=== PATIENT | male | born 1945 | race Caucasian/White ===

== ENCOUNTER 2017-04-12 05:13 | Inpatient (IN) | payer OTHER, MEDICARE ==
[~2017-04-12] VITALS: Ht 172.7 cm; Wt 77.1 kg
[2017-04-12 05:13] VITALS: BP_SYST 118
[~2017-04-12 05:13] MED LIST: ALFU10TA19 PO; AMOX500C2 PO
[2017-04-12] MEDS ORDERED: BACITRACIN 1 GM OINT TP ONE (06:30)
[2017-04-12] MEDS ORDERED: AMPICILLIN SODIUM/SULBACTAM NA 3 GM in NS 100 ML IV ONE (06:30)
[2017-04-12] MEDS ORDERED: AMPICILLIN SODIUM/SULBACTAM NA 3 GM VIAL ONE (06:55)
[2017-04-12 06:56] LABS: BASOPHILS # (AUTO) 0.1 K/uL (0.0-0.2); BASOPHILS % (AUTO) 0.8 % (0.0-2.0); EOSINOPHILS # (AUTO) 0.1 K/uL (0.0-0.4); EOSINOPHILS % (AUTO) 1.1 % (0.0-4.0); HEMATOCRIT 42.8 % (36-54); HEMOGLOBIN 14.2 g/dL (14.0-18.0); LYMPHOCYTES % (AUTO) 12.4 % (20.5-51.5); MEAN CORPUSCULAR HEMOGLOBIN 31 pg (27-31); MEAN CORPUSCULAR HGB CONC 33 % (32-36); MEAN CORPUSCULAR VOLUME 95 fL (79.0-98.0); MONOCYTES # (AUTO) 0.6 K/uL (0.0-1.0); MONOCYTES % (AUTO) 7.8 % (1.7-9.3); NEUTROPHILS % (AUTO) 77.9 % (40.0-70.0); PLATELET COUNT (AUTO) 207 K/uL (130-430); RED BLOOD CELL COUNT(AUTO) 4.53 MIL/uL (4.2-6.2); RED CELL DISTRIBUTION WIDTH 12.1 % (9.0-15.0); WHITE BLOOD COUNT (AUTO) 7.8 K/uL (4.8-10.8)
[2017-04-12 07:18] LABS: ANION GAP 7 (5-15); CALCIUM 8.8 mg/dL (8.4-11.0); CHLORIDE 107 mmol/L (98-107); CREATININE 1.34 mg/dL (0.55-1.30); GLUCOSE 107 mg/dL (70-99); POTASSIUM 4.4 mmol/L (3.5-5.1); SODIUM SERUM 141 mmol/L (136-145); UREA NITROGEN, BLOOD 19 mg/dL (8-21)
[2017-04-12 07:23] LABS: ALANINE AMINOTRANSFERASE 31 U/L (12-78); ALBUMIN 3.8 g/dL (3.4-4.8); ASPARTATE AMINOTRANSFERASE 23 U/L (10-37); TOTAL BILIRUBIN 1.8 mg/dL (0.0-1.0); TOTAL PROTEIN, SERUM 7.1 g/dL (6.4-8.3)
[2017-04-12] MEDS ORDERED: ALFU10TA19 PO (08:42)
[2017-04-12 08:58] VITALS: BP_SYST 133
[2017-04-12] MEDS: VANCOMYCIN HCL 1,250 MG in NS 250 ML IV SCH (10:59)
[2017-04-12] MEDS ORDERED: ONDANSETRON HCL 4 MG/2 ML VIAL IVP PRN (12:30)
[2017-04-12] MEDS ORDERED: HYDROcodone/ACETAMIN 5-325 MG TAB (NORCO/ VICODIN) PO PRN (12:30)
[2017-04-12] MEDS: PIPERACILLIN/TAZO 3.375/DEX-IS 50 ML IV SCH ×3 (13:51→23:15)
[2017-04-12] MEDS: NACL 0.9% 1,000 ML IV SCH (13:52)
[2017-04-12 16:12] VITALS: BP_SYST 125
[2017-04-12 20:00] VITALS: BP_SYST 99
[2017-04-12] MEDS: LACTOBACILLUS RHAMNOSUS GG 1 CAP CAPSULE PO SCH (20:19)
[2017-04-13 00:16] VITALS: BP_SYST 103
[2017-04-13] MEDS: NACL 0.9% 1,000 ML IV SCH ×2 (03:25→18:02)
[2017-04-13 04:57] VITALS: BP_SYST 109
[2017-04-13] MEDS: PIPERACILLIN/TAZO 3.375/DEX-IS 50 ML IV SCH ×2 (05:01→11:52)
[2017-04-13 06:23] LABS: ALANINE AMINOTRANSFERASE 29 U/L (12-78); ANION GAP 5 (5-15); ASPARTATE AMINOTRANSFERASE 23 U/L (10-37); C-REACTIVE PROTEIN QUANT 1.2 mg/dL (0-0.5); CALCIUM 8.2 mg/dL (8.4-11.0); CHLORIDE 108 mmol/L (98-107); CREATININE 1.42 mg/dL (0.55-1.30); GLUCOSE 105 mg/dL (70-99); POTASSIUM 4.2 mmol/L (3.5-5.1); SODIUM SERUM 139 mmol/L (136-145); TOTAL BILIRUBIN 1.5 mg/dL (0.0-1.0); UREA NITROGEN, BLOOD 15 mg/dL (8-21)
[2017-04-13 06:28] LABS: BASOPHILS % (AUTO) 0.9 % (0.0-2.0); EOSINOPHILS # (AUTO) 0.1 K/uL (0.0-0.4); EOSINOPHILS % (AUTO) 2.4 % (0.0-4.0); HEMATOCRIT 37.3 % (36-54); HEMOGLOBIN 12.6 g/dL (14.0-18.0); LYMPHOCYTES # (AUTO) 1.4 K/uL (1.0-5.5); LYMPHOCYTES % (AUTO) 26.3 % (20.5-51.5); MEAN CORPUSCULAR HEMOGLOBIN 32 pg (27-31); MEAN CORPUSCULAR HGB CONC 34 % (32-36); MEAN CORPUSCULAR VOLUME 94 fL (79.0-98.0); MONOCYTES # (AUTO) 0.8 K/uL (0.0-1.0); MONOCYTES % (AUTO) 15.9 % (1.7-9.3); NEUTROPHILS # (AUTO) 2.9 K/uL (1.8-7.7); NEUTROPHILS % (AUTO) 54.5 % (40.0-70.0); PLATELET COUNT (AUTO) 179 K/uL (130-430); RED BLOOD CELL COUNT(AUTO) 3.96 MIL/uL (4.2-6.2); RED CELL DISTRIBUTION WIDTH 12.4 % (9.0-15.0); WHITE BLOOD COUNT (AUTO) 5.2 K/uL (4.8-10.8)
[2017-04-13 07:46] LABS: ERYTHROCYTE SEDIMENTATION RATE 13 MM/HR (0-15)
[2017-04-13 08:00] VITALS: BP_SYST 116
[2017-04-13] MEDS: LACTOBACILLUS RHAMNOSUS GG 1 CAP CAPSULE PO SCH ×2 (08:19→20:39)
[2017-04-13] MEDS: VANCOMYCIN HCL 1,250 MG in NS 250 ML IV SCH (10:35)
[2017-04-13 12:06] VITALS: BP_SYST 148
[2017-04-13] MEDS ORDERED: COMMUNICATION ORDER XX ONE (13:45)
[2017-04-13 16:43] VITALS: BP_SYST 125
[2017-04-13] MEDS: CLINDAMYCIN 600 MG in D5W 50 ML IV SCH ×2 (18:02→23:21)
[2017-04-13 20:00] VITALS: BP_SYST 120
[2017-04-13] MEDS: MUPIROCIN 2% TOPICAL OINTMENT 22 GM TP SCH (20:39)
[2017-04-14 00:06] VITALS: BP_SYST 104
[2017-04-14] MEDS: NACL 0.9% 1,000 ML IV SCH ×2 (03:25→15:49)
[2017-04-14 04:17] VITALS: BP_SYST 122
[2017-04-14] MEDS: CLINDAMYCIN 600 MG in D5W 50 ML IV SCH (05:10)
[2017-04-14 08:00] VITALS: BP_SYST 126
[2017-04-14] MEDS: [UNRECOGNIZED DRUG - OTHER] PO SCH (09:00)
[2017-04-14] MEDS: ALFUZOSIN ER 10 MG PO SCH (09:00)
[2017-04-14] MEDS: LACTOBACILLUS RHAMNOSUS GG 1 CAP CAPSULE PO SCH ×2 (09:08→20:55)
[2017-04-14] MEDS: MUPIROCIN 2% TOPICAL OINTMENT 22 GM TP SCH ×2 (09:09→20:55)
[2017-04-14] MEDS ORDERED: LOPERAMIDE HCL 2 MG CAPSULE PO ONE (11:15)
[2017-04-14] MEDS: VANCOMYCIN HCL 1,250 MG in NS 250 ML IV SCH (11:28)
[2017-04-14 11:42] VITALS: BP_SYST 126
[2017-04-14] MEDS: metroNIDAZOLE 500 MG TABLET PO SCH ×3 (15:53→20:59)
[2017-04-14 17:27] VITALS: BP_SYST 123
[2017-04-14 20:00] VITALS: BP_SYST 109
[2017-04-14] MEDS: ACETAMINOPHEN 325 MG TABLET PO PRN ×2 (20:55→20:58)
[2017-04-15 00:33] VITALS: BP_SYST 116
[2017-04-15] MEDS: NACL 0.9% 1,000 ML IV SCH ×3 (00:45→10:45)
[2017-04-15 04:36] VITALS: BP_SYST 107
[2017-04-15] MEDS: metroNIDAZOLE 500 MG TABLET PO SCH ×2 (05:06→13:30)
[2017-04-15 08:10] VITALS: BP_SYST 123
[2017-04-15] MEDS: LACTOBACILLUS RHAMNOSUS GG 1 CAP CAPSULE PO SCH (09:13)
[2017-04-15] MEDS: MUPIROCIN 2% TOPICAL OINTMENT 22 GM TP SCH (09:14)
[2017-04-15] MEDS: [UNRECOGNIZED DRUG - OTHER] PO SCH (09:14)
[2017-04-15] MEDS: ALFUZOSIN ER 10 MG PO SCH (09:14)
[2017-04-15] MEDS: VANCOMYCIN HCL 1,250 MG in NS 250 ML IV SCH (10:08)
[2017-04-15 11:53] VITALS: BP_SYST 112
[2017-04-15 16:29] VITALS: BP_SYST 112
[2017-04-15] MEDS ORDERED: CIPR-211 PO (16:34)
[2017-04-15] MEDS ORDERED: DOXY-4 PO (16:34)
[2017-04-15] MEDS ORDERED: SACC250C3 PO (16:35)
[2017-04-15] MEDS ORDERED: METR500T PO (16:35)
[2017-04-15 17:12] VITALS: BP_SYST 110
== END 2017-04-15 16:55 | disposition home or self-care (01) | DRG 934 ==
LOC: SED 05:13 → SMU 08:16
PROVIDERS: ADMIT Family Medicine; ATTEND Family Medicine
DX: T24.311A Burn of third degree of right thigh, initial encounter (principal); L03.113 Cellulitis of right upper limb; S61.431A Puncture wound without foreign body of right hand, initial encounter; N40.0 Benign prostatic hyperplasia without lower urinary tract symptoms; H93.19 Tinnitus, unspecified ear; B96.89 Other specified bacterial agents as the cause of diseases classified elsewhere; M19.90 Unspecified osteoarthritis, unspecified site; Y83.8 Other surgical procedures as the cause of abnormal reaction of the patient, or of later complication, without mention of misadventure at the time of the procedure; R19.7 Diarrhea, unspecified; X58.XXXA Exposure to other specified factors, initial encounter; Y93.89 Activity, other specified; Z88.6 Allergy status to analgesic agent; Y92.89 Other specified places as the place of occurrence of the external cause; Y99.8 Other external cause status; Z87.440 Personal history of urinary (tract) infections
CPT/HCPCS: 36415; 73221; 80053; 83605; 85025; 85651-TC; 86140; 87040-TC; 99285; J0295; J2543; J3370; J3490; J7030; J7040; J7050; J7060

== ENCOUNTER 2018-08-22 03:44 | Inpatient (IN) | payer OTHER, MEDICARE ==
[~2018-08-22] VITALS: Ht 172.7 cm; Wt 76.7 kg
[~2018-08-22 03:44] MED LIST changes: -AMOX500C2 PO; +CIPR-211 PO; +DOXY100C PO; +METR500T PO; +SACC250C3 PO
[2018-08-22 03:45] VITALS: BP_SYST 140
[2018-08-22] MEDS ORDERED: NACL 0.9% 1,000 ML IV ONE ×2 (04:15→06:30)
[2018-08-22 05:06] LABS: BASOPHILS % (AUTO) 0.3 % (0.0-2.0); EOSINOPHILS % (AUTO) 0.1 % (0.0-4.0); HEMATOCRIT 41.5 % (36-54); HEMOGLOBIN 13.2 g/dL (14.0-18.0); LYMPHOCYTES # (AUTO) 0.7 K/uL (1.0-5.5); LYMPHOCYTES % (AUTO) 5.2 % (20.5-51.5); MEAN CORPUSCULAR HEMOGLOBIN 31 pg (27-31); MEAN CORPUSCULAR HGB CONC 32 % (32-36); MEAN CORPUSCULAR VOLUME 96 fL (79.0-98.0); MONOCYTES % (AUTO) 7.4 % (1.7-9.3); PLATELET COUNT (AUTO) 205 K/uL (130-430); RED BLOOD CELL COUNT(AUTO) 4.32 MIL/uL (4.2-6.2); RED CELL DISTRIBUTION WIDTH 12.1 % (9.0-15.0); WHITE BLOOD COUNT (AUTO) 13.7 K/uL (4.8-10.8)
[2018-08-22 05:11] LABS: ANION GAP 9 (5-15); CALCIUM 8.6 mg/dL (8.4-11.0); CHLORIDE 105 mmol/L (98-107); CREATININE 1.41 mg/dL (0.55-1.30); GLUCOSE 135 mg/dL (70-99); POTASSIUM 3.8 mmol/L (3.5-5.1); SODIUM SERUM 137 mmol/L (136-145); UREA NITROGEN, BLOOD 16 mg/dL (8-21)
[2018-08-22 05:17] LABS: ALANINE AMINOTRANSFERASE 22 U/L (12-78); ALBUMIN 3.2 g/dL (3.4-4.8); ASPARTATE AMINOTRANSFERASE 16 U/L (10-37); TOTAL BILIRUBIN 2.2 mg/dL (0.0-1.0)
[2018-08-22] MEDS ORDERED: cefTRIAXone 1 GM IVPB PREMIX 50 ML IV ONE (05:45)
[2018-08-22] MEDS ORDERED: ACETAMINOPHEN 500 MG TABLET PO ONE (05:45)
[2018-08-22] MEDS ORDERED: TAMSULOSIN HCL 0.4 MG CAP PO ONE (05:45)
[2018-08-22] MEDS ORDERED: TAMSULOSIN HCL 0.4 MG CAP ONE (05:51)
[2018-08-22] MEDS ORDERED: NS 500 ML IV ONE (06:30)
[2018-08-22] MEDS ORDERED: LEVOFLOXACIN 500 MG/D5W 100 ML IV ONE (06:30)
[2018-08-22 06:33] LABS: BILIRUBIN,URINE NEGATIVE (NEGATIVE); BLOOD, URINE 3+ (NEGATIVE); COLOR,URINE YELLOW (YELLOW); GLUCOSE,URINE NEGATIVE (NEGATIVE); KETONES,URINE NEGATIVE (NEGATIVE); LEUKOCYTE ESTERASE ,URINE 1+ (NEGATIVE); NITRITE, URINE POSITIVE (NEGATIVE); PROTEIN URINE 1+ (NEGATIVE); UROBILINOGEN,URINE 0.2 (0.2-1.0)
[2018-08-22 06:34] LABS: CLARITY/URINE HAZY (CLEAR)
[2018-08-22 06:36] LABS: BACTERIA,URINE MANY /HPF (None Seen); WBC,URINE 50-80 /HPF (0-3)
[2018-08-22 07:10] VITALS: BP_SYST 96
[2018-08-22] MEDS ORDERED: KCL 20 mEq in 0.45% NS 1000 mL 1,000 ML IV SCH (08:30)
[2018-08-22] MEDS: TAMSULOSIN HCL 0.4 MG CAP PO SCH (08:53)
[2018-08-22] MEDS ORDERED: MEROPENEM 1 GM in NS 100 ML IV SCH (09:00)
[2018-08-22] MEDS ORDERED: CEFEPIME 1 GM in D5W 50 ML IV SCH (09:00)
[2018-08-22] MEDS: MEROPENEM 1 GM in NS 100 ML IV SCH ×2 (09:33→18:18)
[2018-08-22 11:39] VITALS: BP_SYST 104
[2018-08-22] MEDS: ACETAMINOPHEN 325 MG TABLET PO PRN ×2 (12:22→21:23)
[2018-08-22] MEDS: KCL 20 mEq in D5NS 1000 mL 1,000 ML IV SCH ×2 (15:21→22:37)
[2018-08-22 15:34] VITALS: BP_SYST 99
[2018-08-22 19:40] VITALS: BP_SYST 136
[2018-08-22] MEDS: ENOXAPARIN SODIUM 30 MG/0.3 ML SYRINGE SUBCUT SCH (21:17)
[2018-08-22 23:00] VITALS: BP_SYST 111
[2018-08-23] MEDS: MEROPENEM 1 GM in NS 100 ML IV SCH ×2 (02:21→09:01)
[2018-08-23] MEDS: ACETAMINOPHEN 325 MG TABLET PO PRN ×3 (02:24→15:36)
[2018-08-23] MEDS: KCL 20 mEq in D5NS 1000 mL 1,000 ML IV SCH ×4 (05:49→22:02)
[2018-08-23 06:52] LABS: ANION GAP 7 (5-15); CALCIUM 7.8 mg/dL (8.4-11.0); CHLORIDE 106 mmol/L (98-107); CREATININE 1.36 mg/dL (0.55-1.30); GLUCOSE 147 mg/dL (70-99); SODIUM SERUM 136 mmol/L (136-145); UREA NITROGEN, BLOOD 9 mg/dL (8-21)
[2018-08-23 06:59] LABS: BASOPHILS % (AUTO) 0.2 % (0.0-2.0); EOSINOPHILS % (AUTO) 0.3 % (0.0-4.0); HEMATOCRIT 35.8 % (36-54); HEMOGLOBIN 12.3 g/dL (14.0-18.0); LYMPHOCYTES # (AUTO) 0.7 K/uL (1.0-5.5); LYMPHOCYTES % (AUTO) 8.7 % (20.5-51.5); MEAN CORPUSCULAR HEMOGLOBIN 33 pg (27-31); MEAN CORPUSCULAR HGB CONC 35 % (32-36); MEAN CORPUSCULAR VOLUME 95 fL (79.0-98.0); MONOCYTES # (AUTO) 0.5 K/uL (0.0-1.0); MONOCYTES % (AUTO) 6.3 % (1.7-9.3); NEUTROPHILS # (AUTO) 7.2 K/uL (1.8-7.7); NEUTROPHILS % (AUTO) 84.5 % (40.0-70.0); PLATELET COUNT (AUTO) 168 K/uL (130-430); RED BLOOD CELL COUNT(AUTO) 3.77 MIL/uL (4.2-6.2); RED CELL DISTRIBUTION WIDTH 12.1 % (9.0-15.0); WHITE BLOOD COUNT (AUTO) 8.4 K/uL (4.8-10.8)
[2018-08-23 07:50] VITALS: BP_SYST 115
[2018-08-23] MEDS: TAMSULOSIN HCL 0.4 MG CAP PO SCH ×3 (08:53→09:03)
[2018-08-23] MEDS: KETOROLAC TROMETHAMINE 15 MG VIAL IVP PRN (09:00)
[2018-08-23] MEDS ORDERED: GENTAMICIN 100 mg/50 mL NS 50 ML IV ONE (11:00)
[2018-08-23] MEDS: cefTRIAXone 1 GM in D5W 50 ML IV SCH (11:40)
[2018-08-23 12:30] VITALS: BP_SYST 103
[2018-08-23] MEDS ORDERED: *CUBICIN 4 MG/KG Q24H/PHARMACY XX ONE (13:45)
[2018-08-23 16:15] VITALS: BP_SYST 111
[2018-08-23] MEDS: NS IV SCH (16:52)
[2018-08-23] MEDS: DAPTOMYCIN IV SCH (16:52)
[2018-08-23 20:00] VITALS: BP_SYST 112
[2018-08-23] MEDS: ENOXAPARIN SODIUM 30 MG/0.3 ML SYRINGE SUBCUT SCH (20:42)
[2018-08-24 00:18] VITALS: BP_SYST 137
[2018-08-24] MEDS: KETOROLAC TROMETHAMINE 15 MG VIAL IVP PRN ×3 (02:41→21:29)
[2018-08-24] MEDS: KCL 20 mEq in D5NS 1000 mL 1,000 ML IV SCH ×3 (04:56→20:20)
[2018-08-24 07:37] LABS: % FREE PSA 30.7 % (.); FREE PSA 4.36 ng/mL
[2018-08-24 08:00] VITALS: BP_SYST 140
[2018-08-24] MEDS: TAMSULOSIN HCL 0.4 MG CAP PO SCH (09:00)
[2018-08-24 11:08] VITALS: BP_SYST 132
[2018-08-24] MEDS: cefTRIAXone 1 GM in D5W 50 ML IV SCH (11:10)
[2018-08-24] MEDS: NS IV SCH (15:23)
[2018-08-24] MEDS: DAPTOMYCIN IV SCH (15:23)
[2018-08-24 16:00] VITALS: BP_SYST 119
[2018-08-24 20:00] VITALS: BP_SYST 134
[2018-08-24] MEDS: ENOXAPARIN SODIUM 30 MG/0.3 ML SYRINGE SUBCUT SCH (21:25)
[2018-08-24] MEDS: ALFUZOSIN HCL 10 MG PO SCH (21:27)
[2018-08-25] VITALS: BP_SYST 144
[2018-08-25] MEDS: ACETAMINOPHEN 325 MG TABLET PO PRN ×2 (02:59→20:40)
[2018-08-25] MEDS: KCL 20 mEq in D5NS 1000 mL 1,000 ML IV SCH ×4 (04:51→22:38)
[2018-08-25 05:36] VITALS: BP_SYST 111
[2018-08-25 07:41] LABS: BASOPHILS % (AUTO) 0.2 % (0.0-2.0); EOSINOPHILS # (AUTO) 0.2 K/uL (0.0-0.4); EOSINOPHILS % (AUTO) 1.5 % (0.0-4.0); HEMATOCRIT 34.4 % (36-54); HEMOGLOBIN 11.6 g/dL (14.0-18.0); LYMPHOCYTES # (AUTO) 1.1 K/uL (1.0-5.5); LYMPHOCYTES % (AUTO) 10.8 % (20.5-51.5); MEAN CORPUSCULAR HEMOGLOBIN 32 pg (27-31); MEAN CORPUSCULAR HGB CONC 34 % (32-36); MEAN CORPUSCULAR VOLUME 96 fL (79.0-98.0); MONOCYTES # (AUTO) 1.3 K/uL (0.0-1.0); MONOCYTES % (AUTO) 12.4 % (1.7-9.3); NEUTROPHILS # (AUTO) 7.8 K/uL (1.8-7.7); NEUTROPHILS % (AUTO) 75.1 % (40.0-70.0); PLATELET COUNT (AUTO) 189 K/uL (130-430); RED BLOOD CELL COUNT(AUTO) 3.59 MIL/uL (4.2-6.2); RED CELL DISTRIBUTION WIDTH 12.1 % (9.0-15.0); WHITE BLOOD COUNT (AUTO) 10.4 K/uL (4.8-10.8)
[2018-08-25 07:42] LABS: ANION GAP 6 (5-15); CALCIUM 8.2 mg/dL (8.4-11.0); CHLORIDE 107 mmol/L (98-107); CREATININE 1.23 mg/dL (0.55-1.30); GLUCOSE 104 mg/dL (70-99); POTASSIUM 4.5 mmol/L (3.5-5.1); SODIUM SERUM 137 mmol/L (136-145); UREA NITROGEN, BLOOD 10 mg/dL (8-21)
[2018-08-25 08:08] VITALS: BP_SYST 139
[2018-08-25] MEDS: cefTRIAXone 1 GM in D5W 50 ML IV SCH (11:39)
[2018-08-25 12:55] VITALS: BP_SYST 119
[2018-08-25 14:14] LABS: PROSTATE SPECIFIC AG TOTAL 14.2 ng/mL (0.0-4.0)
[2018-08-25 16:23] VITALS: BP_SYST 140
[2018-08-25] MEDS: DAPTOMYCIN IV SCH (16:53)
[2018-08-25] MEDS: NS IV SCH (16:53)
[2018-08-25 20:00] VITALS: BP_SYST 145
[2018-08-25] MEDS: ALFUZOSIN HCL 10 MG PO SCH (20:39)
[2018-08-25] MEDS: ENOXAPARIN SODIUM 30 MG/0.3 ML SYRINGE SUBCUT SCH (22:42)
[2018-08-26 04:30] VITALS: BP_SYST 138
[2018-08-26] MEDS: KCL 20 mEq in D5NS 1000 mL 1,000 ML IV SCH ×3 (07:24→20:59)
[2018-08-26 08:04] VITALS: BP_SYST 129
[2018-08-26] MEDS: cefTRIAXone 1 GM in D5W 50 ML IV SCH (11:31)
[2018-08-26 12:14] VITALS: BP_SYST 131
[2018-08-26] MEDS: NS IV SCH (16:05)
[2018-08-26] MEDS: DAPTOMYCIN IV SCH (16:05)
[2018-08-26 16:58] VITALS: BP_SYST 126
[2018-08-26 20:00] VITALS: BP_SYST 147
[2018-08-26] MEDS: ENOXAPARIN SODIUM 30 MG/0.3 ML SYRINGE SUBCUT SCH (21:00)
[2018-08-26] MEDS: ALFUZOSIN HCL 10 MG PO SCH (21:01)
[2018-08-26] MEDS: CLOTRIMAZOLE/BETAMETHASONE 45 GM TOPICAL CREAM TP SCH (22:15)
[2018-08-26 23:29] VITALS: BP_SYST 130
[2018-08-27] MEDS: KCL 20 mEq in D5NS 1000 mL 1,000 ML IV SCH ×2 (03:46→11:22)
[2018-08-27 07:23] LABS: ANION GAP 9 (5-15); CALCIUM 8.5 mg/dL (8.4-11.0); CHLORIDE 103 mmol/L (98-107); CREATININE 1.13 mg/dL (0.55-1.30); GLUCOSE 107 mg/dL (70-99); POTASSIUM 4.3 mmol/L (3.5-5.1); SODIUM SERUM 137 mmol/L (136-145); UREA NITROGEN, BLOOD 10 mg/dL (8-21)
[2018-08-27 07:26] LABS: BASOPHILS % (AUTO) 0.4 % (0.0-2.0); EOSINOPHILS # (AUTO) 0.3 K/uL (0.0-0.4); EOSINOPHILS % (AUTO) 3.5 % (0.0-4.0); HEMATOCRIT 34.7 % (36-54); LYMPHOCYTES # (AUTO) 1.5 K/uL (1.0-5.5); LYMPHOCYTES % (AUTO) 18.1 % (20.5-51.5); MEAN CORPUSCULAR HEMOGLOBIN 33 pg (27-31); MEAN CORPUSCULAR HGB CONC 35 % (32-36); MEAN CORPUSCULAR VOLUME 95 fL (79.0-98.0); MONOCYTES % (AUTO) 11.9 % (1.7-9.3); NEUTROPHILS # (AUTO) 5.5 K/uL (1.8-7.7); NEUTROPHILS % (AUTO) 66.1 % (40.0-70.0); PLATELET COUNT (AUTO) 266 K/uL (130-430); RED BLOOD CELL COUNT(AUTO) 3.67 MIL/uL (4.2-6.2); RED CELL DISTRIBUTION WIDTH 12.3 % (9.0-15.0); WHITE BLOOD COUNT (AUTO) 8.3 K/uL (4.8-10.8)
[2018-08-27 08:00] VITALS: BP_SYST 133
[2018-08-27] MEDS: CLOTRIMAZOLE/BETAMETHASONE 45 GM TOPICAL CREAM TP SCH ×2 (08:59→20:26)
[2018-08-27] MEDS: cefTRIAXone 1 GM in D5W 50 ML IV SCH (11:21)
[2018-08-27 12:50] VITALS: BP_SYST 130
[2018-08-27] MEDS: NS IV SCH (15:21)
[2018-08-27] MEDS: DAPTOMYCIN IV SCH (15:21)
[2018-08-27 16:49] VITALS: BP_SYST 119
[2018-08-27 20:00] VITALS: BP_SYST 122
[2018-08-27] MEDS: ENOXAPARIN SODIUM 30 MG/0.3 ML SYRINGE SUBCUT SCH (20:25)
[2018-08-27] MEDS: ALFUZOSIN HCL 10 MG PO SCH (20:27)
[2018-08-28 00:14] VITALS: BP_SYST 119
[2018-08-28 08:33] VITALS: BP_SYST 122
[2018-08-28] MEDS: CLOTRIMAZOLE/BETAMETHASONE 45 GM TOPICAL CREAM TP SCH (09:51)
[2018-08-28] MEDS ORDERED: LEVO250T2 PO (11:41)
[2018-08-28] MEDS ORDERED: LEVOFLOXACIN 500 MG TABLET PO ONE (11:45)
[2018-08-28 12:20] VITALS: BP_SYST 135
[2018-08-28 12:54] VITALS: BP_SYST 120
== END 2018-08-28 13:51 | disposition home or self-care (01) | DRG 872 ==
LOC: SED 03:44 → SMU 06:06
PROVIDERS: ADMIT Family Medicine; ATTEND Family Medicine
DX: A41.9 Sepsis, unspecified organism (principal); N10 Acute pyelonephritis; N17.9 Acute kidney failure, unspecified; N20.0 Calculus of kidney; E86.0 Dehydration; N35.919 Unspecified urethral stricture, male, unspecified site; N40.1 Benign prostatic hyperplasia with lower urinary tract symptoms; R33.8 Other retention of urine; B96.20 Unspecified Escherichia coli [E. coli] as the cause of diseases classified elsewhere; R21 Rash and other nonspecific skin eruption; Z87.442 Personal history of urinary calculi; Z88.5 Allergy status to narcotic agent
CPT/HCPCS: 36415; 80048; 80053; 81000-TC; 83605; 85025; 87040-TC; 87086; 87186-TC; 90656; 96361; 96365; 96368; 99285; G0103; J0692; J0696; J0878; J1580; J1650; J1885; J1956; J2185; J3480; J7030; J7040; J7060

== ENCOUNTER 2018-09-05 10:38 | Outpatient (CLI) | payer OTHER, MEDICARE ==
[~2018-09-05 10:38] MED LIST changes: -CIPR-211 PO; -DOXY100C PO; +LEVO250T2 PO; -METR500T PO; -SACC250C3 PO
[2018-09-05 11:18] LABS: BASOPHILS # (AUTO) 0.1 K/uL (0.0-0.2); BASOPHILS % (AUTO) 1.3 % (0.0-2.0); EOSINOPHILS # (AUTO) 0.1 K/uL (0.0-0.4); EOSINOPHILS % (AUTO) 0.7 % (0.0-4.0); HEMATOCRIT 44.6 % (36-54); HEMOGLOBIN 14.5 g/dL (14.0-18.0); LYMPHOCYTES # (AUTO) 1.9 K/uL (1.0-5.5); LYMPHOCYTES % (AUTO) 21.2 % (20.5-51.5); MEAN CORPUSCULAR HEMOGLOBIN 32 pg (27-31); MEAN CORPUSCULAR HGB CONC 33 % (32-36); MEAN CORPUSCULAR VOLUME 96 fL (79.0-98.0); MONOCYTES # (AUTO) 0.7 K/uL (0.0-1.0); NEUTROPHILS # (AUTO) 6.2 K/uL (1.8-7.7); NEUTROPHILS % (AUTO) 68.8 % (40.0-70.0); PLATELET COUNT (AUTO) 536 K/uL (130-430); RED BLOOD CELL COUNT(AUTO) 4.62 MIL/uL (4.2-6.2); RED CELL DISTRIBUTION WIDTH 12.3 % (9.0-15.0)
[2018-09-05 11:20] LABS: ANION GAP 3 (5-15); CALCIUM 9.6 mg/dL (8.4-11.0); CHLORIDE 106 mmol/L (98-107); GLUCOSE 110 mg/dL (70-99); POTASSIUM 5.2 mmol/L (3.5-5.1); SODIUM SERUM 138 mmol/L (136-145)
[2018-09-05 11:21] LABS: CREATININE 1.51 mg/dL (0.55-1.30); UREA NITROGEN, BLOOD 22 mg/dL (8-21)
[2018-09-05 11:26] LABS: PROTHROMBIN TIME 10.2 SECS (9.5-12.5)
[2018-09-05 11:42] LABS: BILIRUBIN,URINE NEGATIVE (NEGATIVE); BLOOD, URINE 1+ (NEGATIVE); CLARITY/URINE CLEAR (CLEAR); COLOR,URINE YELLOW (YELLOW); GLUCOSE,URINE NEGATIVE (NEGATIVE); KETONES,URINE NEGATIVE (NEGATIVE); LEUKOCYTE ESTERASE ,URINE NEGATIVE (NEGATIVE); NITRITE, URINE NEGATIVE (NEGATIVE); PH,URINE 5.5 (5.0-8.0); PROTEIN URINE NEGATIVE (NEGATIVE); UROBILINOGEN,URINE 0.2 (0.2-1.0)
[2018-09-05 12:08] LABS: BACTERIA,URINE RARE /HPF (None Seen); MUCUS,URINE 1+ /LPF (None Seen); WBC,URINE 0-3 /HPF (0-3)
== END 2018-09-05 20:40 | disposition home or self-care (01) ==
LOC: SRD 10:38
PROVIDERS: ATTEND Family Medicine
DX: Z01.818 Encounter for other preprocedural examination (principal); R05 Cough; N20.0 Calculus of kidney; Z90.49 Acquired absence of other specified parts of digestive tract
CPT/HCPCS: 36415; 71046-TC; 80048; 81000-TC; 85025; 85610-TC; 85730-TC; 87086

== ENCOUNTER 2018-09-13 16:44 | Emergency (ER) | payer OTHER, MEDICARE ==
[~2018-09-13] VITALS: Ht 172.7 cm; Wt 72.1 kg
[2018-09-13 16:50] VITALS: BP_SYST 136
[2018-09-13] MEDS ORDERED: ONDANSETRON HCL 4 MG/2 ML VIAL IVP ONE (17:15)
[2018-09-13] MEDS ORDERED: fentaNYL CITRATE/PF 100 MCG/2 ML AMP IVP ONE (17:15)
[2018-09-13 17:44] LABS: ANION GAP 13 (5-15); CALCIUM 8.8 mg/dL (8.4-11.0); CHLORIDE 100 mmol/L (98-107); CREATININE 2.18 mg/dL (0.55-1.30); GLUCOSE 152 mg/dL (70-99); POTASSIUM 4.4 mmol/L (3.5-5.1); SODIUM SERUM 135 mmol/L (136-145); UREA NITROGEN, BLOOD 24 mg/dL (8-21)
[2018-09-13 17:49] LABS: ALANINE AMINOTRANSFERASE 28 U/L (12-78); ALBUMIN 3.3 g/dL (3.4-4.8); ASPARTATE AMINOTRANSFERASE 20 U/L (10-37); LIPASE 129 U/L (73-393); TOTAL BILIRUBIN 1.5 mg/dL (0.0-1.0)
[2018-09-13] MEDS ORDERED: HYDR-3606 PO (18:22)
[2018-09-13] MEDS ORDERED: SULF20OR7 PO (18:22)
[2018-09-13] MEDS ORDERED: BIOF1TAB8 PO (18:22)
[2018-09-13] MEDS ORDERED: MULT-1164 PO (18:22)
[2018-09-13 18:33] LABS: BILIRUBIN,URINE 1+ (NEGATIVE); BLOOD, URINE 3+ (NEGATIVE); CLARITY/URINE CLOUDY (CLEAR); COLOR,URINE RED (YELLOW); GLUCOSE,URINE NEGATIVE (NEGATIVE); KETONES,URINE NEGATIVE (NEGATIVE); LEUKOCYTE ESTERASE ,URINE 2+ (NEGATIVE); NITRITE, URINE POSITIVE (NEGATIVE); PROTEIN URINE 3+ (NEGATIVE)
[2018-09-13 18:39] LABS: BASOPHILS % (AUTO) 0.2 % (0.0-2.0); EOSINOPHILS % (AUTO) 0.1 % (0.0-4.0); HEMATOCRIT 40.9 % (36-54); HEMOGLOBIN 13.7 g/dL (14.0-18.0); LYMPHOCYTES # (AUTO) 0.9 K/uL (1.0-5.5); LYMPHOCYTES % (AUTO) 6.2 % (20.5-51.5); MEAN CORPUSCULAR HEMOGLOBIN 31 pg (27-31); MEAN CORPUSCULAR HGB CONC 34 % (32-36); MEAN CORPUSCULAR VOLUME 93 fL (79.0-98.0); MONOCYTES # (AUTO) 1.1 K/uL (0.0-1.0); MONOCYTES % (AUTO) 7.7 % (1.7-9.3); NEUTROPHILS % (AUTO) 85.8 % (40.0-70.0); PLATELET COUNT (AUTO) 308 K/uL (130-430); RED BLOOD CELL COUNT(AUTO) 4.38 MIL/uL (4.2-6.2); RED CELL DISTRIBUTION WIDTH 12.6 % (9.0-15.0)
[2018-09-13] MEDS ORDERED: cefTRIAXone 1 GM IVPB PREMIX 50 ML IV ONE (19:00)
[2018-09-13 19:32] LABS: BACTERIA,URINE FEW /HPF (None Seen); RBC,URINE >100 /HPF (0-3); WBC,URINE 20-50 /HPF (0-3)
[2018-09-13 19:33] LABS: MUCUS,URINE None Seen /LPF (None Seen); YEAST,URINE None Seen /HPF (None Seen)
[2018-09-13 20:10] VITALS: BP_SYST 116
== END 2018-09-13 20:10 | disposition home or self-care (01) ==
LOC: SED 16:44
DX: N39.0 Urinary tract infection, site not specified (principal); R33.9 Retention of urine, unspecified; R31.9 Hematuria, unspecified; N18.9 Chronic kidney disease, unspecified; D72.829 Elevated white blood cell count, unspecified; N40.0 Benign prostatic hyperplasia without lower urinary tract symptoms; Z88.6 Allergy status to analgesic agent; Z79.899 Other long term (current) drug therapy
CPT/HCPCS: 36415; 51702; 76770; 80053; 81000; 83690; 85025; 86886; 86900; 86901; 87040; 87086; 96365; 96375; 99285; J0696; J2405; J3010

== ENCOUNTER 2018-11-21 10:45 | Outpatient (CLI) | payer OTHER, MEDICARE ==
[~2018-11-21 10:45] MED LIST changes: +BIOF1TAB8 PO; +HYDR-3606 PO; -LEVO250T2 PO; +MULT-1164 PO; +SULF20OR7 PO
== END 2018-11-21 18:27 | disposition home or self-care (01) ==
LOC: SRD 10:45
PROVIDERS: ATTEND Family Medicine
DX: Z01.818 Encounter for other preprocedural examination (principal); R05 Cough
CPT/HCPCS: 71046-TC

== ENCOUNTER 2019-03-02 13:40 | Emergency (ER) | payer OTHER, MEDICARE ==
[~2019-03-02] VITALS: Ht 172.7 cm; Wt 77.1 kg
[2019-03-02 14:03] VITALS: BP_SYST 151
[2019-03-02 15:55] VITALS: BP_SYST 151
== END 2019-03-02 15:55 | disposition home or self-care (01) ==
LOC: SED 13:40
DX: S93.402A Sprain of unspecified ligament of left ankle, initial encounter (principal); R03.0 Elevated blood-pressure reading, without diagnosis of hypertension; N40.0 Benign prostatic hyperplasia without lower urinary tract symptoms; Z90.49 Acquired absence of other specified parts of digestive tract; Z88.5 Allergy status to narcotic agent; Z79.899 Other long term (current) drug therapy; W01.0XXA Fall on same level from slipping, tripping and stumbling without subsequent striking against object, initial encounter; Y93.89 Activity, other specified; Y92.89 Other specified places as the place of occurrence of the external cause; Y99.8 Other external cause status
CPT/HCPCS: 99283

== ENCOUNTER 2019-09-25 19:00 | Emergency (ER) | payer OTHER, MEDICARE ==
[~2019-09-25] VITALS: Ht 172.7 cm; Wt 79.4 kg
[~2019-09-25 19:00] MED LIST changes: -HYDR-3606 PO; +HYDR-3607 PO
[2019-09-25 19:20] VITALS: BP_SYST 149
--- NOTE | 2019-09-25 19:50 | NUR ---
Patient to ER bed 05 to gown for evaluation. Side rails up.
--- NOTE | 2019-09-25 19:53 | NUR ---
Pt AAOx4 ambulated into ED c/o 06/24 pain to L lower jaw r/t toothache x 3 days ago. Took tramadol with no relief. No other injuries/complaints per pt/noted. Will continue to monitor.
[2019-09-25] MEDS ORDERED: LIDOCAINE VISCOUS 2%, 15 ML UDC MM ONE (20:30)
[2019-09-25] MEDS ORDERED: PENICILLIN V POTASSIUM 250 MG TABLET PO ONE (20:30)
[2019-09-25] MEDS ORDERED: KETOROLAC TROMETHAMINE 60 MG/2 ML VIAL IM ONE (20:30)
--- NOTE | 2019-09-25 20:37 | NUR ---
ER Dr. Rothman at bedside examining patient.
[2019-09-25] MEDS ORDERED: AMOXICILLIN 500 MG CAPSULE PO ONE (21:00)
--- NOTE | 2019-09-25 21:10 | NUR ---
Medication administered. Pt tolerated well. No adverse reactions noted.
[2019-09-25] MEDS ORDERED: AMOXICILLIN 500 MG CAPSULE ONE (21:13)
[2019-09-25] MEDS ORDERED: ACETAMINOPHEN 500 MG TABLET PO ONE (21:15)
[2019-09-25 21:40] VITALS: BP_SYST 149
--- NOTE | 2019-09-25 21:40 | NUR ---
Patient given written and verbal discharge instructions and verbalizes understanding. ER MD Rothman discussed with patient the results and treatment provided. Patient in stable condition. ID arm band removed. Rx of lidocaine viscous solution, norco 5mg-325mg and penicillin 250 mg given. Patient educated on pain management and to follow up with PMD. Pain Scale 2/10. Opportunity for questions provided and answered. Medication side effect fact sheet provided.
== END 2019-09-25 21:40 | disposition home or self-care (01) ==
LOC: SED 19:00
DX: K05.10 Chronic gingivitis, plaque induced (principal); K08.89 Other specified disorders of teeth and supporting structures; N40.0 Benign prostatic hyperplasia without lower urinary tract symptoms; N20.0 Calculus of kidney; Z79.899 Other long term (current) drug therapy; Z88.5 Allergy status to narcotic agent
CPT/HCPCS: 96372; 99284; J1885; J2001

== ENCOUNTER 2022-05-18 01:55 | Emergency (ER) | payer OTHER, MEDICARE ==
[~2022-05-18] VITALS: Ht 170.2 cm; Wt 74.8 kg
[~2022-05-18 01:55] MED LIST changes: +ALFU10TA10 PO; -ALFU10TA19 PO
[2022-05-18 02:00] VITALS: BP_SYST 134
[2022-05-18] MEDS ORDERED: PHENAZOPYRIDINE HCL 100 MG TABLET PO ONE (04:15)
[2022-05-18] MEDS ORDERED: cefTRIAXone 1 GM in LIDOCAINE 1%, 20 ML MDV 2.1 ML IM ONE (04:15)
[2022-05-18 04:58] LABS: BILIRUBIN,URINE NEGATIVE (NEGATIVE); BLOOD, URINE 3+ (NEGATIVE); CLARITY/URINE CLEAR (CLEAR); COLOR,URINE YELLOW (YELLOW); GLUCOSE,URINE NEGATIVE (NEGATIVE); KETONES,URINE NEGATIVE (NEGATIVE); LEUKOCYTE ESTERASE ,URINE TRACE (NEGATIVE); NITRITE, URINE NEGATIVE (NEGATIVE); PH,URINE 5.5 (5.0-8.0); PROTEIN URINE TRACE (NEGATIVE); UROBILINOGEN,URINE 0.2 (0.2-1.0)
[2022-05-18] MEDS ORDERED: PHEN-890 PO (04:59)
[2022-05-18] MEDS ORDERED: CIPR500T5 PO (04:59)
[2022-05-18 05:08] VITALS: BP_SYST 132
[2022-05-18 05:29] LABS: BACTERIA,URINE FEW /HPF (None Seen); WBC,URINE 50-80 /HPF (0-3)
[2022-05-18 05:30] LABS: MUCUS,URINE None Seen /LPF (None Seen)
== END 2022-05-18 05:08 | disposition home or self-care (01) ==
LOC: SED 01:55
DX: N39.0 Urinary tract infection, site not specified (principal); Z88.5 Allergy status to narcotic agent; Z79.899 Other long term (current) drug therapy
CPT/HCPCS: 81000; 87086; 87186; 96372; 99283; J0696; J2001

== ENCOUNTER 2022-07-26 09:25 | Emergency (ER) | payer OTHER, MEDICARE ==
[~2022-07-26] VITALS: Ht 172.7 cm; Wt 74.8 kg
[2022-07-26 09:25] VITALS: BP_SYST 151
[~2022-07-26 09:25] MED LIST changes: +CIPR500T5 PO; +PHEN-890 PO
[2022-07-26] MEDS ORDERED: NACL 0.9% 1,000 ML IV ONE (10:00)
[2022-07-26] MEDS ORDERED: PHENAZOPYRIDINE HCL 100 MG TABLET PO ONE (10:15)
[2022-07-26 10:20] LABS: BASOPHILS # (AUTO) 0.1 K/uL (0.0-0.2); BASOPHILS % (AUTO) 0.7 % (0.0-2.0); EOSINOPHILS # (AUTO) 0.1 K/uL (0.0-0.4); EOSINOPHILS % (AUTO) 1.3 % (0.0-4.0); HEMATOCRIT 42.1 % (36-54); LYMPHOCYTES # (AUTO) 1.2 K/uL (1.0-5.5); LYMPHOCYTES % (AUTO) 10.9 % (20.5-51.5); MEAN CORPUSCULAR VOLUME 92 fL (79.0-98.0); MONOCYTES # (AUTO) 0.7 K/uL (0.0-1.0); MONOCYTES % (AUTO) 6.6 % (1.7-9.3); NEUTROPHILS # (AUTO) 8.6 K/uL (1.8-7.7); NEUTROPHILS % (AUTO) 80.5 % (40.0-70.0); PLATELET COUNT (AUTO) 209 K/uL (130-430); RED BLOOD CELL COUNT(AUTO) 4.59 MIL/uL (4.2-6.2); RED CELL DISTRIBUTION WIDTH 13.4 % (9.0-15.0); WHITE BLOOD COUNT (AUTO) 10.7 K/uL (4.8-10.8)
[2022-07-26 10:28] LABS: ANION GAP 8 (5-15); CALCIUM 9.1 mg/dL (8.4-11.0); CHLORIDE 104 mmol/L (98-107); GLUCOSE 104 mg/dL (70-99); UREA NITROGEN, BLOOD 18 mg/dL (8-21)
[2022-07-26 10:34] LABS: ALANINE AMINOTRANSFERASE 26 U/L (12-78); ALBUMIN 3.7 g/dL (3.4-4.8); ASPARTATE AMINOTRANSFERASE 23 U/L (10-37); TOTAL BILIRUBIN 2.6 mg/dL (0.0-1.0)
[2022-07-26 10:52] LABS: BILIRUBIN,URINE 1+ (NEGATIVE); BLOOD, URINE 3+ (NEGATIVE); CLARITY/URINE SL CLOUDY (CLEAR); COLOR,URINE BROWN (YELLOW); GLUCOSE,URINE NEGATIVE (NEGATIVE); KETONES,URINE NEGATIVE (NEGATIVE); LEUKOCYTE ESTERASE ,URINE 3+ (NEGATIVE); NITRITE, URINE POSITIVE (NEGATIVE); PROTEIN URINE 2+ (NEGATIVE)
[2022-07-26 11:53] LABS: BACTERIA,URINE FEW /HPF (None Seen); RBC,URINE 20-50 /HPF (0-3); WBC,URINE >100 /HPF (0-3)
[2022-07-26] MEDS ORDERED: PHEN-890 PO (12:38)
[2022-07-26] MEDS ORDERED: LEVO750T64 PO (12:38)
[2022-07-26] MEDS ORDERED: TAMS0.4C96 PO (12:38)
[2022-07-26 12:41] LABS: PROTHROMBIN TIME 9.8 SECS (9.5-12.5)
[2022-07-26] MEDS ORDERED: NITR-85 PO (14:53)
[2022-07-26 15:37] VITALS: BP_SYST 123
== END 2022-07-26 15:40 | disposition home or self-care (01) ==
LOC: SED 09:25
DX: N30.91 Cystitis, unspecified with hematuria (principal); E86.0 Dehydration; N32.0 Bladder-neck obstruction; Z90.79 Acquired absence of other genital organ(s); R30.0 Dysuria; R35.0 Frequency of micturition; Z88.5 Allergy status to narcotic agent; Z79.899 Other long term (current) drug therapy
CPT/HCPCS: 99285; 96365; 76770; 80053; 81000; 85025; 85610; 85730; 87040; 87086; 84484; 87186; 36415; 83605; 93005; 51702; J1956

== ENCOUNTER 2024-01-09 07:16 | Emergency (ER) | payer OTHER, MEDICARE ==
[~2024-01-09] VITALS: Ht 172.7 cm; Wt 74.8 kg
[2024-01-09 07:16] VITALS: BP_SYST 148; PULSE 56; RESP 19; TEMP 98.2; O2SAT 98
[2024-01-09] MEDS ORDERED: ASPIRIN 325 MG TABLET PO ONE (07:30)
[2024-01-09 08:05] LABS: ANION GAP 11 (5-15); CALCIUM 9.2 mg/dL (8.4-11.0); CARBON DIOXIDE 23 mmol/L (23-29); CHLORIDE 108 mmol/L (98-107); CREATININE 1.63 mg/dL (0.55-1.30); GLUCOSE 96 mg/dL (74-106); POTASSIUM 4.4 mmol/L (3.5-5.1); SODIUM SERUM 142 mmol/L (136-145); UREA NITROGEN, BLOOD 26 mg/dL (8-21)
[2024-01-09 08:06] LABS: BASOPHILS # (AUTO) 0.1 K/uL (0.0-0.2); BASOPHILS % (AUTO) 1.2 % (0.0-2.0); EOSINOPHILS # (AUTO) 0.2 K/uL (0.0-0.4); EOSINOPHILS % (AUTO) 2.2 % (0.0-4.0); HEMATOCRIT 43.7 % (36-54); HEMOGLOBIN 15.1 g/dL (14.0-18.0); LYMPHOCYTES # (AUTO) 2.1 K/uL (1.0-5.5); MEAN CORPUSCULAR HEMOGLOBIN 32 pg (27-31); MEAN CORPUSCULAR HGB CONC 35 % (32-36); MEAN CORPUSCULAR VOLUME 92 fL (79.0-98.0); MONOCYTES # (AUTO) 0.8 K/uL (0.0-1.0); MONOCYTES % (AUTO) 10.9 % (1.7-9.3); NEUTROPHILS % (AUTO) 55.7 % (40.0-70.0); PLATELET COUNT (AUTO) 246 K/uL (130-430); RED BLOOD CELL COUNT(AUTO) 4.73 MIL/uL (4.2-6.2); RED CELL DISTRIBUTION WIDTH 13.2 % (9.0-15.0); WHITE BLOOD COUNT (AUTO) 7.1 K/uL (4.8-10.8)
[2024-01-09 11:20] VITALS: BP_SYST 138; PULSE 63; RESP 18; TEMP 98.6; O2SAT 99
== END 2024-01-09 11:21 | disposition home or self-care (01) ==
LOC: SED 07:16
DX: R07.9 Chest pain, unspecified (principal); Z88.5 Allergy status to narcotic agent; Z79.899 Other long term (current) drug therapy
CPT/HCPCS: 36415; 80048; 84484; 85025; 85379; 93005; 99285

== ENCOUNTER 2024-06-05 09:32 | Outpatient (CLI) | payer OTHER, MEDICARE | END 2024-06-05 18:56 | disposition home or self-care (01) | LOC: SRD 09:32 | PROVIDERS: ATTEND Family Medicine | DX: M77.31 Calcaneal spur, right foot (principal); M20.11 Hallux valgus (acquired), right foot; M21.611 Bunion of right foot ==